=== PATIENT | male | born 1940 | race Caucasian/White ===

== ENCOUNTER → 2016-04-18 | Outpatient (CLI) | payer OTHER ==
[~2016-04-18] MED LIST: GADOBUTROL 10 ML VIAL IVP ONE
[2016-04-18 20:19] LABS: CREATININE 1.1 mg/dL (0.7-1.3); GLOMERULAR FILTRATION RATE > 60
--- NOTE | 2016-04-19 14:40 | MR ---
MRI of the Right Shoulder , without and with contrast. History: Shoulder pain. History of malignant melanoma. Technique: Axial proton density, oblique coronal, and sagittal T1 and T2 images were acquired. After intravenous administration of 7.5 mL Gadavist, postcontrast enhanced imaging of the right shoulder is obtained in 3 planes. Comparison Study: February 13, 2016. Findings: Supraspinatus tendon is intact, with mild bursal surface tendinosis. Infraspinatus is also intact with mild undersurface fraying at the greater tuberosity. Subscapularis and teres minor appear intact. There is mild edema diffusely throughout the teres minor muscle, which may be secondary to t rauma or denervation injury. This can be a manifestation of quadrilateral space syndrome. Long head biceps tendon is normally positioned and intact, with mild interstitial tendinosis through the intra-articular aspect. Fluid-filled distention of the subacromial bursa is compatible with bursitis. The patient has a moder ate-sized os acromiale, measuring 2.5 cm in size, with moderate fluid in the synostosis. Glenohumeral evaluation demonstrates deformity of the inferior aspect of the glenoid, suggesting prio r trauma or degenerative etiology. There is an associated degenerative nondisplaced tear of the poste roinferior labrum extending from the 6 o'clock position through the 9 o'clock position, with macerati on and fraying. The remainder of the glenoid labrum and articular cartilage appears intact. Again demonstrated is altered marrow signal intensity within the proximal right humeral diaphysis, wh ich appears identical in features to the prior examination. No extraosseous soft tissue mass identifi ed. Postcontrast enhanced images also demonstrate diffuse enhancement of the right shoulder joint capsule compatible with diffuse synovitis. There is enhancement of the rotator interval which may also repre sent a manifestation of adhesive capsulitis. Impression: 1. Subacromial bursitis. Os acromiale. 2. Diffuse edema throughout the muscle of the teres minor, potential focal trauma or quadrilateral sp andreas denervation injury. 3. Intact rotator cuff. Mild undersurface distal infraspinatus fraying and bursal surface supraspinat us tendinosis. 4. Mild long head biceps tendinosis, intraarticular aspect. 5. Deformity of the inferior glenoid associated with degenerative tear of the posteroinferior glenoid labrum. This may be secondary to prior trauma or degenerative etiology. 6. Stable altered marrow signal intensity within the proximal right humeral diaphysis, without eviden ce of extraosseous soft tissue mass. This may represent red marrow conversion. Continued follow-up durham ggested. 7. Diffuse enhancement of the right shoulder joint capsule suggestive of diffuse synovitis, possible adhesive capsulitis.
== END ==
LOC: FIMAGING 19:24
DX: C30.0 Malignant neoplasm of nasal cavity (principal); M75.51 Bursitis of right shoulder; M75.21 Bicipital tendinitis, right shoulder
CPT/HCPCS: 73223; A9585

== ENCOUNTER → 2016-05-26 | Outpatient (CLI) | payer OTHER ==
[~2016-05-26] MED LIST changes: -GADOBUTROL 10 ML VIAL IVP ONE; +IOPAMIDOL (ISOVUE-300) 100 ML BTL IV ONE
== END ==
LOC: CIMAGING 10:09
DX: C30.0 Malignant neoplasm of nasal cavity (principal); I65.23 Occlusion and stenosis of bilateral carotid arteries; J38.2 Nodules of vocal cords; I73.9 Peripheral vascular disease, unspecified; M50.31 Other cervical disc degeneration, high cervical region; M51.37 Other intervertebral disc degeneration, lumbosacral region; M16.0 Bilateral primary osteoarthritis of hip; N28.1 Cyst of kidney, acquired; Z85.038 Personal history of other malignant neoplasm of large intestine; Z85.51 Personal history of malignant neoplasm of bladder
CPT/HCPCS: 70491; 71260; 74177; Q9967

== ENCOUNTER → 2016-08-22 | Outpatient (CLI) | payer OTHER ==
[~2016-08-22] MED LIST changes: -IOPAMIDOL (ISOVUE-300) 100 ML BTL IV ONE; +IOPAMIDOL (ISOVUE-300) 100 ML BTL ONE
[2016-08-22 11:01] LABS: CREATININE 0.9 mg/dL (0.7-1.3); GLOMERULAR FILTRATION RATE > 60
== END ==
LOC: FIMAGING 09:50
DX: C30.0 Malignant neoplasm of nasal cavity (principal)
CPT/HCPCS: 70491; 71260; 74177; Q9967

== ENCOUNTER 2016-11-30 07:16 | Emergency (ER) | payer OTHER ==
[2016-11-30 07:21] VITALS: O2SAT 97
--- NOTE | 2016-11-30 07:50 | EDPHY ---
H & P Time Seen by Provider: 11/30/16 07:29 HPI/ROS: CHIEF COMPLAINT: Nausea, headache, sore throat HISTORY OF PRESENT ILLNESS: The patient is a 76 y/o male with an extensive cancer history who complains of nausea for the past several days. The nausea was initially waxing and waning, but it has recently become more constant. His states he has not been eating or drinking due to the nausea. He also complains of shortness of breath while laying down. The SOB is hard for him to explain, and seems related to nasal congestion. No cough, exertional SOB or cp. He also has a slight headache, and insomnia due to his general malaise. He also developed a sore throat, which his oncologist believes is due to his recent oral surgery (6wks ago). Laryngoscopy revealed swelling of the glottis. During the post-op visit with his oncologist, 8 days ago, he had a CT study performed that revealed post- op swelling; he denies change in neck sx since he had the CT. Recent brain MRI unremarkable. Denies fever, chest pain, weakness, urinary complaints, diarrhea , constipation or other pertinent symptoms. REVIEW OF SYSTEMS Aside from elements discussed in the HPI, a comprehensive 10-point review of systems was reviewed and is negative. Past Medical/Surgical History: PMH: Malignant melanoma of nasal passage, bladder and colon cancer, squamous cell cancer of vocal cords PSH: Femoral stent bypass Social History: at bedside, lives in [place], retired. Smoking Status: Former smoker Physical Exam: General Appearance: Alert, no distress, voice is hoarse Eyes: Pupils equal and round, no conjunctival pallor or injection ENT, Mouth: Mucous membranes moist, unable to open mouth fully, no gum swelling or tenderness Neck: right sided surgical scar and skin-flap,diffuse firmness of anterior neck (c/w XRT changes), no erythema, warmth or fluctance Respiratory: Lungs are clear to auscultation Cardiovascular: Regular rate and rhythm Gastrointestinal: Abdomen is soft and non- tender. Abdominal ostomy in place. Neurological: A&O, nonfocal, normal gait Skin: Warm and dry, no rash Extremities: Nontender, no pedal edema Psychiatric: Mood and affect normal Constitutional: Initial Vital Signs Temperature (C) 36.2 C 11/30/16 07:19 Heart Rate 96 11/30/16 07:19 Respiratory Rate 18 11/30/16 07:19 Blood Pressure 156/102 H 11/30/16 07:19 O2 Sat (%) 97 11/30/16 07:19 O2 Delivery Mode Room Air Allergies/Adverse Reactions: No Known Allergies Allergy (Verified 11/30/16 07:22) Home Medications: Medication Instructions Recorded Aspirin [Aspirin 81mg (*)] 81 mg PO DAILY 01/11/15 Lipitor 11/30/16 Ondansetron Odt [Zofran Odt 4 mg 4 mg PO Q4 PRN #10 tab 11/30/16 (*)] Medical Decision Making ED Course/Re-evaluation: The patient is a 76 y/o male who presents with nausea for the past several days. Physical exam is unremarkable and there are no localizing signs or symptoms to explain his nausea. Old medical records reviewed; recent CT neck/ chest/abd/pelvis revealed cervical lymphadenopathy, likely metastatic disease, otherwise fairly unremarkable. 0932: Reassessed patient; he is feeling better after 1L IV NS and 4mg IV Zofran. Plan on an additional 1L IV NS. 0948: Reassessed patient. He continues to feel much better and the nausea has resolved. Discussed outpatient followup with his primary care provider. Return precautions provided; patient is comfortable with this plan. Differential Diagnosis: includes though not limited to medication effect, brain tumor, intraabd infection, electrolyte abnormality. - Data Points Laboratory Results: Laboratory Results 11/30/16 08:58 11/30/16 08:58 11/30/16 11/30/16 08:58 08:58 WBC 5.47 10^3/uL 10^3/uL (3.80-9.50) RBC 3.98 10^6/uL L 10^6/uL (4.40-6.38) Hgb 14.0 g/dL g/dL (13.7-17.5) Hct 39.7 % L % (40.0-51.0) MCV 99.7 fL fL (81.5-99.8) MCH 35.2 pg H pg (27.9-34.1) MCHC 35.3 g/dL g/dL (32.4-36.7) RDW 13.2 % % (11.5-15.2) Plt Count 197 10^3/uL 10^3/uL (150-400) MPV 11.2 fL fL (8.7-11.7) Neut % (Auto) 80.5 % H % (39.3-74.2) Lymph % (Auto) 7.9 % L % (15.0-45.0) [place] % (Auto) 8.0 % % (4.5-13.0) Eos % (Auto) 2.4 % % (0.6-7.6) Baso % (Auto) 0.7 % % (0.3-1.7) Nucleat RBC Rel Count 0.0 % % (0.0-0.2) Absolute Neuts (auto) 4.40 10^3/uL 10^3/uL (1.70-6.50) Absolute Lymphs (auto) 0.43 10^3/uL L 10^3/uL (1.00-3.00) Absolute Monos (auto) 0.44 10^3/uL 10^3/uL (0.30-0.80) Absolute Eos (auto) 0.13 10^3/uL 10^3/uL (0.03-0.40) Absolute Basos (auto) 0.04 10^3/uL 10^3/uL (0.02-0.10) Absolute Nucleated RBC 0.00 10^3/uL 10^3/uL (0-0.01) Immature Gran % 0.5 % % (0.0-1.1) Immature Gran # 0.03 10^3/uL 10^3/uL (0.00-0.10) Sodium 132 mEq/L L mEq/L (134-144) Potassium 4.2 mEq/L mEq/L (3.5-5.2) Chloride 97 mEq/L mEq/L (97-110) Carbon Dioxide 23 mEq/l mEq/l (22-31) Anion Gap 12 mEq/L mEq/L (8-16) BUN 13 mg/dL mg/dL (7-23) Creatinine 0.8 mg/dL mg/dL (0.7-1.3) Estimated GFR > 60 Glucose 86 mg/dL mg/dL (70-100) Calcium 8.8 mg/dL mg/dL (8.5-10.4) Total Bilirubin 0.7 mg/dL mg/dL (0.1-1.4) Conjugated Bilirubin 0.4 mg/dL mg/dL (0.0-0.5) Unconjugated Bilirubin 0.3 mg/dL mg/dL (0.0-1.1) AST 21 IU/L IU/L (17-59) ALT 36 IU/L IU/L (21-72) Alkaline Phosphatase 100 IU/L IU/L (38-126) Total Protein 6.0 g/dL L g/dL (6.3-8.2) Albumin 3.8 g/dL g/dL (3.5-5.0) Lipase 39 IU/L IU/L (23-300) Medications Given: Discontinued Medications Sodium Chloride (Ns) 1,000 mls @ 0 mls/hr IV EDNOW ONE; Wide Open PRN Reason: Protocol Stop: 11/30/16 07:52 Last Admin: 11/30/16 07:58 Dose: 1,000 mls Sodium Chloride (Ns) 1,000 mls @ 0 mls/hr IV ONCE ONE; Wide Open PRN Reason: Protocol Stop: 11/30/16 09:33 Last Admin: 11/30/16 09:39 Dose: 1,000 mls Ondansetron HCl (Zofran) 4 mg IVP EDNOW ONE Stop: 11/30/16 07:52 Last Admin: 11/30/16 07:57 Dose: 4 mg Departure - Departure Disposition: Home, Routine, Self-Care Clinical Impression: Nausea Condition: Good Instructions: Acute Nausea and Vomiting (ED) Additional Instructions: 1. Take Zofran as prescribed for your nausea. 2. Followup with your primary care provider in 1-2 days without fail. 3. Return to the emergency department if you experience intractable vomiting, fever, difficulty breathing or other worsening of your symptoms. Referrals: Azam Echevarria MD [Primary Care Provider] - As per Instructions Prescriptions: Ondansetron Odt [Zofran Odt 4 mg (*)] 4 mg PO Q4 PRN #10 tab PRN Reason: Nausea Report Scribed for: Glenis Alexandre Report Scribed by: Genia Morales Date of Report: 11/30/16 Time of Report: 07:31 Physician Review and Approval Statement: 11/30/16 07:31 Portions of this note were transcribed by a medical care evaluation specialist. I personally performed a history, physical exam, medical decision making, and confirmed accuracy of information the transcribed note.
[2016-11-30] MEDS ORDERED: ONDANSETRON 4 MG/2 ML VIAL IVP ONE (07:51)
[2016-11-30] MEDS ORDERED: NS 1,000 ML IV ONE ×2 (07:51→09:32)
[2016-11-30 09:05] LABS: % IMMATURE GRANULYOCYTES 0.5 % (0.0-1.1); ABSOLUTE IMMATURE GRANULOCYTES 0.03 10^3/uL (0.00-0.10); ADD DIFF? NO; ADD MORPH? NO; ADD SCAN? NO; ATYPICAL LYMPHOCYTE FLAG 10 (0-99); FRAGMENT RBC FLAG 0 (0-99); HEMATOCRIT 39.7 % (40.0-51.0); LEFT SHIFT FLG 0 (0-99); LIPEMIA HEMOLYSIS FLAG 90 (0-99); MEAN CELL HEMOGLOBIN 35.2 pg (27.9-34.1); MEAN CELL HEMOGLOBIN CONCENTR. 35.3 g/dL (32.4-36.7); MEAN CELL VOLUME 99.7 fL (81.5-99.8); MEAN PLATELET VOLUME 11.2 fL (8.7-11.7); PLATELET CLUMPS FLAG 0 (0-99); PLATELET COUNT 197 10^3/uL (150-400); RED BLOOD CELL COUNT 3.98 10^6/uL (4.40-6.38); RED CELL DISTRIBUTION WIDTH 13.2 % (11.5-15.2)
[2016-11-30 09:31] LABS: ALANINE AMINOTRANSFERASE 36 IU/L (21-72); ALBUMIN 3.8 g/dL (3.5-5.0); ALKALINE PHOSPHATASE 100 IU/L (38-126); ANION GAP 12 mEq/L (8-16); ASPARTATE AMINOTRANSFERASE 21 IU/L (17-59); BILIRUBIN,TOTAL 0.7 mg/dL (0.1-1.4); BILIRUBIN-CONJUGATED 0.4 mg/dL (0.0-0.5); BILIRUBIN-UNCONJUGATED 0.3 mg/dL (0.0-1.1); CALCIUM 8.8 mg/dL (8.5-10.4); CARBON DIOXIDE 23 mEq/l (22-31); CHLORIDE 97 mEq/L (97-110); CREATININE 0.8 mg/dL (0.7-1.3); GLOMERULAR FILTRATION RATE > 60; GLUCOSE 86 mg/dL (70-100); POTASSIUM 4.2 mEq/L (3.5-5.2); SODIUM 132 mEq/L (134-144)
[2016-11-30 10:04] VITALS: BP 150/81; PULSE 84; RESP 16; TEMP 97.3
== END 2016-11-30 10:33 | disposition home or self-care (01) ==
DX: R11.0 Nausea (principal); E86.9 Volume depletion, unspecified; Z79.82 Long term (current) use of aspirin; Z85.038 Personal history of other malignant neoplasm of large intestine; Z85.51 Personal history of malignant neoplasm of bladder; Z85.820 Personal history of malignant melanoma of skin; Z85.828 Personal history of other malignant neoplasm of skin; Z87.891 Personal history of nicotine dependence
CPT/HCPCS: 96361; 96374; 99284; J2405

== ENCOUNTER 2017-02-04 10:51 | Inpatient (IN) | payer OTHER ==
[2017-02-04] MEDS ORDERED: NS 1,000 ML IV ONE (11:01)
--- NOTE | 2017-02-04 11:10 | EDPHY ---
HPI/HX/ROS/PE/MDM Narrative: CHIEF COMPLAINT: Dehydration, decreasing appetite HPI: The patient is a 76 y/o male arriving with his family with dehydration and decreasing appetite over the last 3 days. 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 Since his most recent trial, they saw an increase in the size of melanoma metastases in his liver and lungs. He saw his oncologist this past week and they have opted to set him up with palliative care. They have not yet been contacted by a palliative care nurse due to the holiday and family is concerned about keeping him comfortable until that is set up. His family says he has eaten very little since Monday, though he has been able to take his medications. He has appeared very restless and uncomfortable during this time and family is concerned he is now dehydrated. REVIEW OF SYSTEMS: Aside from elements discussed in the HPI, a comprehensive 10-point review of systems was reviewed and is negative. PMH: Malignant melanoma of nasal passage, bladder, and colon; squamous cell carcinoma of vocal cords, currently on immunotherapy trials at [facility]. 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 Prior medical records reviewed including ED visit 11/30/16 for nausea. SOCIAL HISTORY: and daughters at bedside. Oncologist is Dr. Evans at [facility]. PHYSICAL EXAM: General:Patient is alert, in no acute distress. ENT:Eyes are normal to inspection. Limited intraoral inspection due to mass. Neck: Large swelling and deformity to right clavicular area and right lateral throat. Respiratory:No respiratory distress. Breath sounds normal bilaterally. Cardiovascular: Regular rate and rhythm. Strong peripheral pulses. Normal cap refill. Abdomen:The abdomen is nontender to palpation. There are no peritoneal signs. Back: Normal to inspection. No tenderness to palpation. Skin: Normal color. No rash. Warm and dry. Extremities: Normal appearance. Full range of motion. Neuro: Oriented x3. Normal motor function. Normal sensory function. ED Course: This is a 76 y/o male with metastatic mucosal melanoma who presents with a 3- day history of decreasing appetite, dehydration, and worsening restlessness. He has large area of swelling and deformity to his right clavicular area and right throat. They are planning to set up palliative care but have been unable to do so over the holiday. Family is requesting hydration and possible admission to keep patient comfortable, hydrated, and fed until home care is arranged. Plan for IV, labs, and IV fluids. Patient declines pain medication at this time. Dr. Salvador accepts admission. General Initial Vital Signs: Initial Vital Signs Temperature (C) 37 C 02/04/17 10:55 Heart Rate 104 H 02/04/17 10:55 Respiratory Rate 20 02/04/17 10:55 Blood Pressure 82/53 L 02/04/17 10:55 O2 Sat (%) 95 02/04/17 10:55 O2 Delivery Mode Room Air Allergies/Adverse Reactions: No Known Allergies Allergy (Verified 02/04/17 10:54) Home Medications: Medication Instructions Recorded ASPIRIN 02/04/17 DEXAMETHASONE 02/04/17 MIRTAZAPINE 02/04/17 Zofran 02/04/17 morphINE 02/04/17 Departure - Departure Disposition: [facility] Inpatient Acute Clinical Impression: Dehydration, Loss of appetite, Metastatic melanoma Condition: Fair Referrals: Azam Echevarria MD [Primary Care Provider] - As per Instructions Report Scribed for: Arnoldo Castellanos Report Scribed by: Janeth Ramos Date of Report: 02/04/17 Time of Report: 11:03 Physician Review and Approval Statement: Portions of this note were transcribed by an ED scribe. I personally performed the history, physical exam, and medical decision making; and confirm the accuracy of the information in the transcribed note.
[2017-02-04 11:54] LABS: % IMMATURE GRANULYOCYTES 0.7 % (0.0-1.1); ABSOLUTE IMMATURE GRANULOCYTES 0.08 10^3/uL (0.00-0.10); ADD DIFF? NO; ADD MORPH? NO; ADD SCAN? NO; ATYPICAL LYMPHOCYTE FLAG 0 (0-99); FRAGMENT RBC FLAG 20 (0-99); HEMATOCRIT 39.9 % (40.0-51.0); HEMOGLOBIN 13.5 g/dL (13.7-17.5); LEFT SHIFT FLG 0 (0-99); LIPEMIA HEMOLYSIS FLAG 90 (0-99); MEAN CELL HEMOGLOBIN 34.7 pg (27.9-34.1); MEAN CELL HEMOGLOBIN CONCENTR. 33.8 g/dL (32.4-36.7); MEAN CELL VOLUME 102.6 fL (81.5-99.8); MEAN PLATELET VOLUME 11.8 fL (8.7-11.7); PLATELET CLUMPS FLAG 0 (0-99); PLATELET COUNT 259 10^3/uL (150-400); RED BLOOD CELL COUNT 3.89 10^6/uL (4.40-6.38); RED CELL DISTRIBUTION WIDTH 14.7 % (11.5-15.2)
[2017-02-04 12:06] LABS: ANION GAP 10 mEq/L (8-16); CALCIUM 9.2 mg/dL (8.5-10.4); CARBON DIOXIDE 30 mEq/l (22-31); CHLORIDE 96 mEq/L (97-110); CREATININE 0.8 mg/dL (0.7-1.3); GLOMERULAR FILTRATION RATE > 60; GLUCOSE 104 mg/dL (70-100); SODIUM 136 mEq/L (134-144)
[2017-02-04] MEDS ORDERED: LORazepam 0.5 MG TAB PO PRN ×2 (13:24→13:50)
[2017-02-04] MEDS ORDERED: ALBUTEROL 3 ML DEYVIAL IH PRN (13:50)
[2017-02-04] MEDS ORDERED: ACETAMINOPHEN 325 MG TAB PO PRN (13:50)
[2017-02-04] MEDS ORDERED: ONDANSETRON 4 MG/2 ML VIAL IVP PRN (13:50)
--- NOTE | 2017-02-04 14:01 | PDGENHP ---
History and Physical - Chief Complaint dehydration - History of Present Illness This is a 76 y/o male with metastatic mucosal melanoma who presents with a 3- day history of decreasing appetite, dehydration, and worsening restlessness. He has large area of swelling and deformity to his right clavicular area and right throat. He met with his Oncologist at the [facility] and palliative care was attempted to be set up. Unfortunately due to the holidays this could not be done. In the E.D. he was found to have acute dehydration and started on IVF. He feels slightly better but still not well. He is very weak. He has has very limited oral intake over the last few days. He c/o of generalized pain and neck pain intermittently. He denies any N/V/D. Denies resp or urinary symptoms. Has been afebrile. No focal weakness PMH: Malignant melanoma of nasal passage, bladder, and colon; squamous cell carcinoma of vocal cords, currently on immunotherapy trials at [facility]. 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 Oncologist is Dr. Evans at [facility]. FMHX: NON CONTRIBUTABLE STUDIES: WBC: 11, otherwise labs unremarkable History Information - Allergies/Home Medication List Allergies/Adverse Reactions: No Known Allergies Allergy (Verified 02/04/17 10:54) Home Medications: Aspirin EC [Aspirin EC 81 mg (*)] 81 mg PO DAILY 02/04/17 [Last Taken 02/04/17] Atorvastatin Calcium [Lipitor 40 mg (*)] 40 mg PO DAILY 02/04/17 [Last Taken ] Dexamethasone [Decadron 2 MG (*)] 2 - 4 mg PO DAILY 02/04/17 [Last Taken ] LORazepam [Ativan (*)] 0.5 - 1 mg PO Q6H PRN 02/04/17 [Last Taken Unknown] Mirtazapine [Remeron] 15 mg PO HS 02/04/17 [Last Taken 02/03/17] Ondansetron Odt [Zofran Odt 4 mg (*)] 8 mg PO BID 02/04/17 [Last Taken 02/04/17] morphINE IR [morphINE IR 15 mg (*)] 15 mg PO Q4H PRN 02/04/17 [Last Taken ] morphINE SR [Ms Contin/Oramorph 15 mg (*)] 15 mg PO BID 02/04/17 [Last Taken ] I have personally reviewed and updated: medical history, social history - Social History Smoking Status: Former smoker Review of Systems Review of Systems: ROS: 10pt was reviewed & negative except for what was stated in HPI & below Physical Exam Physical Exam: Temp Pulse Resp BP Pulse Ox 36.9 C 86 16 151/73 H 98 02/04/17 12:51 02/04/17 12:51 02/04/17 12:51 02/04/17 12:51 02/04/17 12:51 O2 (L/minute) 2 Constitutional: chronically ill appearing Eyes: PERRL, EOMI Ears, Nose, Mouth, Throat: hearing normal, dry mucous membranes Cardiovascular: regular rate and rhythym, No JVD, No edema Respiratory: no respiratory distress, no rales or rhonchi, clear to auscultation Gastrointestinal: normoactive bowel sounds, soft, non-tender abdomen, no palpable masses, other (ostomy bag) Genitourinary: no bladder fullness Skin: warm Musculoskeletal: generalized weakness Neurologic: AAOx3 Psychiatric: interacting appropriately, not anxious, encephalopathic (slightly confused) Lab Data & Imaging Review 02/04/17 11:42 02/04/17 11:42 WBC 11.05 10^3/uL (3.80-9.50) H 02/04/17 11:42 RBC 3.89 10^6/uL (4.40-6.38) L 02/04/17 11:42 Hgb 13.5 g/dL (13.7-17.5) L 02/04/17 11:42 Hct 39.9 % (40.0-51.0) L 02/04/17 11:42 MCV 102.6 fL (81.5-99.8) H 02/04/17 11:42 MCH 34.7 pg (27.9-34.1) H 02/04/17 11:42 MCHC 33.8 g/dL (32.4-36.7) 02/04/17 11:42 RDW 14.7 % (11.5-15.2) 02/04/17 11:42 Plt Count 259 10^3/uL (150-400) 02/04/17 11:42 MPV 11.8 fL (8.7-11.7) H 02/04/17 11:42 Neut % (Auto) 84.0 % (39.3-74.2) H 02/04/17 11:42 Lymph % (Auto) 6.6 % (15.0-45.0) L 02/04/17 11:42 [place] % (Auto) 7.4 % (4.5-13.0) 02/04/17 11:42 Eos % (Auto) 0.8 % (0.6-7.6) 02/04/17 11:42 Baso % (Auto) 0.5 % (0.3-1.7) 02/04/17 11:42 Nucleat RBC Rel Count 0.0 % (0.0-0.2) 02/04/17 11:42 Absolute Neuts (auto) 9.28 10^3/uL (1.70-6.50) H 02/04/17 11:42 Absolute Lymphs (auto) 0.73 10^3/uL (1.00-3.00) L 02/04/17 11:42 Absolute Monos (auto) 0.82 10^3/uL (0.30-0.80) H 02/04/17 11:42 Absolute Eos (auto) 0.09 10^3/uL (0.03-0.40) 02/04/17 11:42 Absolute Basos (auto) 0.05 10^3/uL (0.02-0.10) 02/04/17 11:42 Absolute Nucleated RBC 0.00 10^3/uL (0-0.01) 02/04/17 11:42 Immature Gran % 0.7 % (0.0-1.1) 02/04/17 11:42 Immature Gran # 0.08 10^3/uL (0.00-0.10) 02/04/17 11:42 Sodium 136 mEq/L (134-144) 02/04/17 11:42 Potassium 4.0 mEq/L (3.5-5.2) 02/04/17 11:42 Chloride 96 mEq/L (97-110) L 02/04/17 11:42 Carbon Dioxide 30 mEq/l (22-31) 02/04/17 11:42 Anion Gap 10 mEq/L (8-16) 02/04/17 11:42 BUN 26 mg/dL (7-23) H 02/04/17 11:42 Creatinine 0.8 mg/dL (0.7-1.3) 02/04/17 11:42 Estimated GFR > 60 02/04/17 11:42 Glucose 104 mg/dL (70-100) H 02/04/17 11:42 Calcium 9.2 mg/dL (8.5-10.4) 02/04/17 11:42 Assessment & Plan Assessment: #Acute Dehydration #Metastatic Mucosal Melanoma with mets to liver and lung #FTT #Weakness and Deconditioning. Etiology is likely multifactorial. I do not see an infectious reason for this Plan: -Admit -More IVF -Nutrition consult -Palliative care consult -Pain meds -Supportive care -Hold off on Onc consult for now -check labs, TSH -DNR, confirmed today -Lovenox for DVT proph
--- NOTE | 2017-02-04 14:38 | PDMN ---
Medical Necessity Medical necessity: C/M review: est. > 2 MN LOS for eval and TX of acute dehydration, failure to thrive, generalized weakness and deconditioning, decreasing appetite, requiring planned Palliative Care consult, Dietary consult , ongoing IV fluids, acute inpt PT, pain management, comorbid metastatic mucosal melanoma with metastasis to liver and lung, hx hyperlipidemia, chronic pain syndrome, colostomy per H/P.
[2017-02-04] MEDS: NS 1,000 ML IV SCH (14:44)
[2017-02-04] MEDS: DEXAMETHASONE 2 MG TAB PO SCH (14:44)
[2017-02-04] MEDS ORDERED: NON-FORMULARY NEW DRUG (Mirtazapine [Remeron] 15 MG) PO SCH (21:00)
[2017-02-04] MEDS: ONDANSETRON DISINTEGRATING 4 MG TAB PO SCH (21:42)
[2017-02-04] MEDS: MIRTAZAPINE 15 MG TAB PO SCH (21:42)
[2017-02-04] MEDS: morphINE SR 15 MG TAB PO SCH (21:42)
[2017-02-05] MEDS: NS 1,000 ML IV SCH ×2 (04:10→16:45)
[2017-02-05 06:09] LABS: ALANINE AMINOTRANSFERASE 33 IU/L (21-72); ALBUMIN 3.3 g/dL (3.5-5.0); ALKALINE PHOSPHATASE 85 IU/L (38-126); ANION GAP 11 mEq/L (8-16); ASPARTATE AMINOTRANSFERASE 25 IU/L (17-59); CALCIUM 8.8 mg/dL (8.5-10.4); CARBON DIOXIDE 29 mEq/l (22-31); CHLORIDE 100 mEq/L (97-110); CREATININE 0.7 mg/dL (0.7-1.3); GLOMERULAR FILTRATION RATE > 60; GLUCOSE 92 mg/dL (70-100); MAGNESIUM 1.7 mg/dL (1.6-2.3); POTASSIUM 4.4 mEq/L (3.5-5.2); SODIUM 140 mEq/L (134-144); TOTAL PROTEIN 5.6 g/dL (6.3-8.2)
[2017-02-05] MEDS: morphINE SR 15 MG TAB PO SCH ×2 (08:43→20:05)
[2017-02-05] MEDS: ENOXAPARIN 40 MG/0.4 ML SYR SC SCH (08:43)
[2017-02-05] MEDS: ATORVASTATIN CALCIUM 40 MG TAB PO SCH (08:43)
[2017-02-05] MEDS: ONDANSETRON DISINTEGRATING 4 MG TAB PO SCH ×2 (08:44→20:06)
[2017-02-05] MEDS: ASPIRIN EC 81 MG TAB PO SCH (08:44)
[2017-02-05] MEDS: DEXAMETHASONE 2 MG TAB PO SCH (08:44)
[2017-02-05] MEDS ORDERED: DEXAMETHASONE 2 MG TAB PO SCH (09:00)
--- NOTE | 2017-02-05 12:08 | HOSPPROG ---
Hospitalist Progress Note Assessment/Plan: #Acute Dehydration, improving #Metastatic Mucosal Melanoma with mets to liver and lung #FTT #Weakness and Deconditioning. Etiology is likely multifactorial Plan: -Inpt -cont with IVF -Nutrition consult pending -Palliative care consult pending -Pain meds -Supportive care -Hold off on Onc consult for now -PT -DNR -Lovenox for DVT proph Subjective: Feeling better, still with low oral intake. No CP or SOB Objective: Vital Signs Temp Pulse Resp BP Pulse Ox 36.6 C 90 18 150/79 H 95 02/05/17 07:29 02/05/17 07:29 02/05/17 07:29 02/05/17 07:29 02/05/17 07:29 Laboratory Results 02/05/17 05:35 02/04/17 02/05/17 02/06/17 05:59 05:59 05:59 Intake Total 1180 Balance 1180 - Physical Exam Constitutional: chronically ill appearing Eyes: PERRL, EOMI Ears, Nose, Mouth, Throat: dry mucous membranes Cardiovascular: regular rate and rhythym, No edema Respiratory: no respiratory distress Gastrointestinal: soft, non-tender abdomen Skin: warm Musculoskeletal: generalized weakness Neurologic: AAOx3 Psychiatric: interacting appropriately, not anxious, not encephalopathic ICD10 Worksheet Patient Problems: Problems Problem Status Onset Dehydration Acute Loss of appetite Acute Metastatic melanoma Acute Small bowel obstruction Acute
[2017-02-05] MEDS: MIRTAZAPINE 15 MG TAB PO SCH (20:06)
[2017-02-06] MEDS: NS 1,000 ML IV SCH ×2 (05:44→18:54)
--- NOTE | 2017-02-06 10:23 | HOSPPROG ---
Hospitalist Progress Note Assessment/Plan: #Acute Dehydration, improving #Metastatic Mucosal Melanoma with mets to liver and lung #FTT #Weakness and Deconditioning. Etiology is likely multifactorial Plan: -Inpt -cont with IVF -Nutrition consult pending -Palliative care consult pending -Pain meds -Supportive care -Hold off on Onc consult for now -PT -DNR -Lovenox for DVT proph Subjective: improved pain with mscontin. not sleeping well. awaits paliative care eval today Objective: Vital Signs Temp Pulse Resp BP Pulse Ox 36.6 C 90 20 134/70 H 96 02/06/17 09:03 02/06/17 09:03 02/06/17 09:03 02/06/17 09:03 02/06/17 09:03 Laboratory Results 02/05/17 05:35 02/05/17 02/06/17 02/07/17 05:59 05:59 05:59 Intake Total 1180 2578 Balance 1180 2578 - Physical Exam Constitutional: no apparent distress, uncomfortable Ears, Nose, Mouth, Throat: other (large right sided neck mass) Cardiovascular: regular rate and rhythym, no murmur, rub, or gallop Respiratory: no respiratory distress, no rales or rhonchi, clear to auscultation Gastrointestinal: normoactive bowel sounds, soft, non-tender abdomen, no palpable masses, No guarding, No rebound ICD10 Worksheet Patient Problems: Problems Problem Status Onset Small bowel obstruction Acute Dehydration Acute Loss of appetite Acute Metastatic melanoma Acute
--- NOTE | 2017-02-06 11:04 | PDPCPN ---
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 Iv fluids given and improvement in symptoms. Follows with Dr [facility] and currently undergoing clinical trial with immunotherapy. Oncologist had recommended palliative care at the last appointment but was admitted to the hospital before this was accomplished. Palliative care consulted per family request. Met with Ryan, his Goldie, daughter Mitesh Munson, and Myrna at the bedside this morning. Goldie and Ryan shared their long history of cancer but always beating it. Just a couple of weeks ago Ryan learned that he had metastatic cancer as the latest CT showed progression into his lungs and liver. He had been on a clinical trial in hopes of this working. Per Ryan his oncologist is looking into another clinical trial and he was supposed to start 5 days of an oral chemo to see if this would help shrink the tumors. He has been having decreased appetite with dehydration over the past 3 weeks. He did not eat or drink anything for almost 3 days before this hospitalization. He has been having no taste and therefore does not want to eat much. Also suffers from constant nausea which is somewhat relieved with zofran. His pain has much improved with the MScontin and states none at the moment. At times he is sleeping a lot but this past week he has not been able to sleep at all. He is used to being a very active person who is independent. He is hoping he can have some stabilization of his symptoms so he can have a good quality of life again. We spoke about if he does not improve then he stated "that would be the end". While he hopes to be able to do a clinical trial again, he also realizes he is not a candidate for chemo at this time. Assessment: Physical: - Pain: chronic pain from cancer -on scheduled MScontin 15 mg BID - morphine IR PRN - on dex which will help with any inflammatory pain - Poor appetite: - on remeron 15 mg QHS- just recently started - dex as above - has tried various appetite stimulants in the past with limited success - general diet as tolerated - pain control as above - constipation- has ostomy with good output - at risk on opiates - senna has worked well in the past and would use PRN while on opiates Emotional/psychological: Doing ok, has a lot of support from family Advanced Care Planning: Is patient decisional?: Yes Code Status: DNR POMamie: Goldie is MDPOA. Plan: Home once medically stable. Setting up for home IV hydration, C RN, and home based palliative care to continue working on symptoms and goals of care. Ryan is hoping he can stabilize his symptoms so he can continue a clinical trial but if he does not improve then he would want to focus on comfort care only. Subjective: I'm ok Objective: Social History: to Goldie. 2 daughters involved and local. Son lives in [facility]. Retired genetic engineer. Enjoys playing golf. Medication list reviewed ROS: General: fatigue, weakness ENT: negative Resp: negative GI: poor appetite : negative MS: ca related pain Skin: negative Neuro: negative Psych: negative Functional assessment: PPS: 50% Functional status: needs assistance with ADLs Vital Signs Temp Pulse Resp BP Pulse Ox 36.6 C 90 20 134/70 H 96 02/06/17 09:03 02/06/17 09:03 02/06/17 09:03 02/06/17 09:03 02/06/17 09:03 Laboratory Results 02/05/17 05:35 02/05/17 02/06/17 02/07/17 05:59 05:59 05:59 Intake Total 1180 2578 Balance 1180 2578 Physical Exam - Physical Exam General Appearance: alert, no apparent distress EENT: other (large mass on right neck) Respiratory: No respiratory distress, No accessory muscle use Skin: normal color, warm/dry Extremities: No pedal edema Neuro/Psych: alert, oriented x 3 ICD10 Worksheet Patient Problems: Problems Problem Status Onset Dehydration Acute Loss of appetite Acute Metastatic melanoma Acute Palliative care encounter Acute Small bowel obstruction Acute - ICD10 Problem Qualifiers (1) Palliative care encounter
[2017-02-06] MEDS: morphINE SR 15 MG TAB PO SCH ×2 (11:05→21:26)
[2017-02-06] MEDS: ASPIRIN EC 81 MG TAB PO SCH (11:05)
[2017-02-06] MEDS: ATORVASTATIN CALCIUM 40 MG TAB PO SCH (11:06)
[2017-02-06] MEDS: DEXAMETHASONE 2 MG TAB PO SCH (11:06)
[2017-02-06] MEDS: ONDANSETRON DISINTEGRATING 4 MG TAB PO SCH ×2 (11:06→21:26)
[2017-02-06] MEDS: ENOXAPARIN 40 MG/0.4 ML SYR SC SCH (11:06)
--- NOTE | 2017-02-06 13:18 | PDIAF ---
- Diagnosis Diagnosis: Malignant Melanoma Code Status: Do Not Resuscitate - Medication Management Discharge Medications: Medications to Continue on Transfer Aspirin EC [Aspirin EC 81 mg (*)] 81 mg PO DAILY 02/04/17 [Last Taken 02/04/17] Atorvastatin Calcium [Lipitor 40 mg (*)] 40 mg PO DAILY 02/04/17 [Last Taken ] Dexamethasone [Decadron 2 MG (*)] 2 - 4 mg PO DAILY 02/04/17 [Last Taken ] LORazepam [Ativan (*)] 0.5 - 1 mg PO Q6H PRN 02/04/17 [Last Taken Unknown] Mirtazapine [Remeron] 15 mg PO HS 02/04/17 [Last Taken 02/03/17] Ondansetron Odt [Zofran Odt 4 mg (*)] 8 mg PO BID 02/04/17 [Last Taken 02/04/17] morphINE IR [morphINE IR 15 mg (*)] 15 mg PO Q4H PRN 02/04/17 [Last Taken ] morphINE SR [Ms Contin/Oramorph 15 mg (*)] 15 mg PO BID 02/04/17 [Last Taken ] Discharge Medications: Refer to the Discharge Home Medication list for PRN reason. - Orders Services needed: Home Care, Registered Nurse (IV hydration at home), Physical Therapy Home Care Face to Face: I certify that this patient was under my care and that I had the required [id number] encounter meeting the encounter requirements on the discharge day. My findings support the fact that the patient is homebound as defined in Home Care Face to Face Continued: CMS Chapter 7 Medicare Benefits Manual 30.1.1 , The condition of the patient is such that there exists a normal inability to leave home and consequently, leaving home would require a considerable and taxing effort. Diet Recommendation: no restrictions on diet Additional: IV hydration - Follow Up Care Current Providers and Referrals: Azam Echevarria MD [Primary Care Provider] - As per Instructions
--- NOTE | 2017-02-06 15:34 | ASMTCMCOM ---
CM Note CM Note Notes: Met with patient today with spouse and daugter present. Patient and family decided that they would like to be able to go home but understand that they will need both Home care services with RN for help with infusion and with his ostomy. as will as PT and OT at home. Spoke with Itzel at [facility] who will get infusion supplies for hydration at home. Hanna Kwan to see patient and spouse on Monday, 02/07 between 9 and 10am. Patients spouse said she felt her would benefit in having some alone time talking with Palliative meteorology teacher Mitesh. Case management will follow. Date Signed: 02/06/2017 03:33 PM Electronically Signed By:DEMARCUS Larios
[2017-02-06] MEDS ORDERED: LOSARTAN POTASSIUM 50 MG TAB PO SCH (16:30)
--- NOTE | 2017-02-06 20:16 | GDS ---
[f rep st] DISCHARGE SUMMARY DISCHARGE DIAGNOSES: 1. Metastatic mucosal melanoma with metastasis to the liver and lung. 2. Failure to thrive due to above. 3. Acute dehydration. 4. Weakness and deconditioning. CONSULTANTS: Hospice and Palliative Care. HOSPITAL COURSE BY PROBLEM: Metastatic mucosal melanoma, presenting with dehydration, failure to thr ben with weakness and deconditioning: The patient was admitted to the hospital where he was continue d on his oral home pain medications that consisted of MS Contin. He was treated with IV fluids. On hospital day #2, he was seen by Palliative Care who have recommended that he be discharged home with home care, PT, and home hydration. [facility], but will likely proceed with hospice care. PHYSICAL EXAM ON DISCHARGE: Please refer to progress note in [facility]. DISCHARGE MEDICATIONS: Please refer to discharge medication reconciliation in [facility] for details. DISCHARGE INSTRUCTIONS: The patient will be discharged home, where he should follow up with his Onco logy team to further discuss treatment options and to consider hospice care. /[id number]/MODL
[2017-02-06] MEDS ORDERED: PANTOPRAZOLE SODIUM 40 MG TAB PO SCH (21:00)
[2017-02-06] MEDS: MIRTAZAPINE 15 MG TAB PO SCH (21:26)
[2017-02-07 03:13] VITALS: RESP 18
[2017-02-07] MEDS: NS 1,000 ML IV SCH (07:54)
[2017-02-07] MEDS: ENOXAPARIN 40 MG/0.4 ML SYR SC SCH (08:30)
[2017-02-07] MEDS: ASPIRIN EC 81 MG TAB PO SCH (08:30)
[2017-02-07] MEDS: ATORVASTATIN CALCIUM 40 MG TAB PO SCH (08:30)
[2017-02-07] MEDS: morphINE SR 15 MG TAB PO SCH (08:30)
[2017-02-07] MEDS: ONDANSETRON DISINTEGRATING 4 MG TAB PO SCH (08:31)
[2017-02-07] MEDS: DEXAMETHASONE 2 MG TAB PO SCH (08:31)
--- NOTE | 2017-02-07 13:26 | PDIAF ---
- Diagnosis Diagnosis: Malignant Melanoma Code Status: Do Not Resuscitate - Medication Management Discharge Medications: Medications to Continue on Transfer Aspirin EC [Aspirin EC 81 mg (*)] 81 mg PO DAILY 02/04/17 [Last Taken 02/04/17] Atorvastatin Calcium [Lipitor 40 mg (*)] 40 mg PO DAILY 02/04/17 [Last Taken ] Dexamethasone [Decadron 2 MG (*)] 2 - 4 mg PO DAILY 02/04/17 [Last Taken ] LORazepam [Ativan (*)] 0.5 - 1 mg PO Q6H PRN 02/04/17 [Last Taken Unknown] Mirtazapine [Remeron] 15 mg PO HS 02/04/17 [Last Taken 02/03/17] Ondansetron Odt [Zofran Odt 4 mg (*)] 8 mg PO BID 02/04/17 [Last Taken 02/04/17] morphINE IR [morphINE IR 15 mg (*)] 15 mg PO Q4H PRN 02/04/17 [Last Taken ] morphINE SR [Ms Contin/Oramorph 15 mg (*)] 15 mg PO BID 02/04/17 [Last Taken ] Discharge Medications: Refer to the Discharge Home Medication list for PRN reason. - Orders Services needed: Home Care, Registered Nurse, Physical Therapy, Occupational Therapy Home Care Face to Face: I certify that this patient was under my care and that I had the required [id number] encounter meeting the encounter requirements on the discharge day. My findings support the fact that the patient is homebound as defined in Home Care Face to Face Continued: CMS Chapter 7 Medicare Benefits Manual 30.1.1 , The condition of the patient is such that there exists a normal inability to leave home and consequently, leaving home would require a considerable and taxing effort. Diet Recommendation: no restrictions on diet Additional: IV Hydration - Follow Up Care Current Providers and Referrals: Azam Echevarria MD [Primary Care Provider] - As per Instructions
--- NOTE | 2017-02-07 13:28 | PDIAF ---
- Diagnosis Diagnosis: Malignant Melanoma Code Status: Do Not Resuscitate - Medication Management Discharge Medications: Medications to Continue on Transfer Aspirin EC [Aspirin EC 81 mg (*)] 81 mg PO DAILY 02/04/17 [Last Taken 02/04/17] Atorvastatin Calcium [Lipitor 40 mg (*)] 40 mg PO DAILY 02/04/17 [Last Taken ] Dexamethasone [Decadron 2 MG (*)] 2 - 4 mg PO DAILY 02/04/17 [Last Taken ] LORazepam [Ativan (*)] 0.5 - 1 mg PO Q6H PRN 02/04/17 [Last Taken Unknown] Mirtazapine [Remeron] 15 mg PO HS 02/04/17 [Last Taken 02/03/17] Ondansetron Odt [Zofran Odt 4 mg (*)] 8 mg PO BID 02/04/17 [Last Taken 02/04/17] morphINE IR [morphINE IR 15 mg (*)] 15 mg PO Q4H PRN 02/04/17 [Last Taken ] morphINE SR [Ms Contin/Oramorph 15 mg (*)] 15 mg PO BID 02/04/17 [Last Taken ] Ns [NS IV 1000ml (*)] 75 ml IV CONT #1 bag 02/07/17 [Last Taken Unknown] Discharge Medications: Refer to the Discharge Home Medication list for PRN reason. - Orders Services needed: Home Care, Registered Nurse, Physical Therapy, Occupational Therapy Home Care Face to Face: I certify that this patient was under my care and that I had the required [id number] encounter meeting the encounter requirements on the discharge day. My findings support the fact that the patient is homebound as defined in Home Care Face to Face Continued: CMS Chapter 7 Medicare Benefits Manual 30.1.1 , The condition of the patient is such that there exists a normal inability to leave home and consequently, leaving home would require a considerable and taxing effort. Diet Recommendation: no restrictions on diet Additional: IV Hydration NS 75 ml/hr - Follow Up Care Current Providers and Referrals: Azam Echevarria MD [Primary Care Provider] - As per Instructions
[2017-02-07 13:35] VITALS: BP 151/75; PULSE 83; TEMP 97.9; O2SAT 97
--- NOTE | 2017-02-07 13:37 | PDHOMEO2F ---
Home Oxygen Face to Face Home Orders: I certify that a physician or a nurse practitioner or physician's apartment community assistant manager has had a [id number] encounter with this patient on the date of this order due to the diagnosis listed, which relates to the primary reason the patient requires home oxygen. Alternative treatments have been tried, or considered, and deemed ineffective. It is anticipated that supplemental oxygen will result in improvement with treatment. Home oxygen qualifying diagnosis: metastatic melanoma Home oxygen secondary diagnosis: hypoxemia SpO2 on room air (%): 83 Frequency of home oxygen needed: continuous Home oxygen liters per minute: 3 Home oxygen delivery device: nasal cannula Concentrator: Yes E-tanks for mobility and back up: Yes If ordering portable O2, is the patient mobile in the home?: Yes I certify that, based on these findings, the home oxygen is medically necessary for this patient for the following length of time. Length of time home oxygen needed: 99 years
--- NOTE | 2017-02-07 13:39 | ASMTCMCOM ---
CM Note CM Note Notes: Hanna lyons here today to meet with patient and spouse. Following meeting Karen from [facility] said patient and spouse had decided to go with Hanna lyons. Contacted [facility] to confirm that they will be able to do start of care tomorrow , 02/08. Also, spoke with Itzel from [facility] who will be here to speak with family. Case management will follow. Date Signed: 02/07/2017 01:39 PM Electronically Signed By:DEMARCUS Larios
--- NOTE | 2017-02-07 15:40 | ASMTCMCOM ---
CM Note CM Note Notes: Spoke with patient and spouse to review services in place for discharge. Provided spouse, Goldie , with numbers for [facility] home care, [facility]. [facility] will call patient at home tonight to schedule time at home on Monday to see. [facility] will deliver infusion supplies tonight to their home, O2 will also be delivered . Both expressed appreciation to staff for care given. They are aware that Dr. Evans from [facility] will be coming to see patient at home. Date Signed: 02/07/2017 03:40 PM Electronically Signed By:DEMARCUS Larios
--- NOTE | 2017-02-07 16:39 | PDIAF ---
- Diagnosis Diagnosis: Malignant Melanoma Code Status: Do Not Resuscitate - Medication Management Discharge Medications: Medications to Continue on Transfer Aspirin EC [Aspirin EC 81 mg (*)] 81 mg PO DAILY 02/04/17 [Last Taken 02/04/17] Atorvastatin Calcium [Lipitor 40 mg (*)] 40 mg PO DAILY 02/04/17 [Last Taken ] Dexamethasone [Decadron 2 MG (*)] 2 - 4 mg PO DAILY 02/04/17 [Last Taken ] LORazepam [Ativan (*)] 0.5 - 1 mg PO Q6H PRN 02/04/17 [Last Taken Unknown] Mirtazapine [Remeron] 15 mg PO HS 02/04/17 [Last Taken 02/03/17] Ondansetron Odt [Zofran Odt 4 mg (*)] 8 mg PO BID 02/04/17 [Last Taken 02/04/17] morphINE IR [morphINE IR 15 mg (*)] 15 mg PO Q4H PRN 02/04/17 [Last Taken ] morphINE SR [Ms Contin/Oramorph 15 mg (*)] 15 mg PO BID 02/04/17 [Last Taken ] Ns [NS IV 1000ml (*)] 75 ml IV CONT #1 bag 02/07/17 [Last Taken Unknown] Discharge Medications: Refer to the Discharge Home Medication list for PRN reason. - Orders Services needed: Home Care, Registered Nurse, Physical Therapy, Occupational Therapy Home Care Face to Face: I certify that this patient was under my care and that I had the required [id number] encounter meeting the encounter requirements on the discharge day. My findings support the fact that the patient is homebound as defined in Home Care Face to Face Continued: CMS Chapter 7 Medicare Benefits Manual 30.1.1 , The condition of the patient is such that there exists a normal inability to leave home and consequently, leaving home would require a considerable and taxing effort. Diet Recommendation: no restrictions on diet Additional: IV Hydration NS 75 ml/hr 1L per day - Follow Up Care Current Providers and Referrals: Azam Echevarria MD [Primary Care Provider] - As per Instructions
--- NOTE | 2017-02-07 16:41 | PDIAF ---
- Diagnosis Diagnosis: Malignant Melanoma Code Status: Do Not Resuscitate - Medication Management Discharge Medications: Medications to Continue on Transfer Aspirin EC [Aspirin EC 81 mg (*)] 81 mg PO DAILY 02/04/17 [Last Taken 02/04/17] Atorvastatin Calcium [Lipitor 40 mg (*)] 40 mg PO DAILY 02/04/17 [Last Taken ] Dexamethasone [Decadron 2 MG (*)] 2 - 4 mg PO DAILY 02/04/17 [Last Taken ] LORazepam [Ativan (*)] 0.5 - 1 mg PO Q6H PRN 02/04/17 [Last Taken Unknown] Mirtazapine [Remeron] 15 mg PO HS 02/04/17 [Last Taken 02/03/17] Ondansetron Odt [Zofran Odt 4 mg (*)] 8 mg PO BID 02/04/17 [Last Taken 02/04/17] morphINE IR [morphINE IR 15 mg (*)] 15 mg PO Q4H PRN 02/04/17 [Last Taken ] morphINE SR [Ms Contin/Oramorph 15 mg (*)] 15 mg PO BID 02/04/17 [Last Taken ] Ns [NS IV 1000ml (*)] 1,000 ml IV DAILY #30 bag 02/07/17 [Last Taken Unknown] Discharge Medications: Refer to the Discharge Home Medication list for PRN reason. - Orders Services needed: Home Care, Registered Nurse, Physical Therapy, Occupational Therapy Home Care Face to Face: I certify that this patient was under my care and that I had the required [id number] encounter meeting the encounter requirements on the discharge day. My findings support the fact that the patient is homebound as defined in Home Care Face to Face Continued: CMS Chapter 7 Medicare Benefits Manual 30.1.1 , The condition of the patient is such that there exists a normal inability to leave home and consequently, leaving home would require a considerable and taxing effort. Diet Recommendation: no restrictions on diet Additional: IV Hydration NS 75 ml/hr 1L per day - Follow Up Care Current Providers and Referrals: Azam Echevarria MD [Primary Care Provider] - As per Instructions
--- NOTE | 2017-02-08 09:30 | ASDISCHSUM ---
Discharge Information Plan Status:Home with Home Health Medically Cleared to Leave: Discharge Date:02/07/2017 05:30 PM CM D/C Disposition:Home Health Service ADT D/C Disposition:Home Health Service Projected Discharge Date:02/07/2017 12:00 AM Transportation at D/C: Discharge Delay Reason: Follow-Up Date:02/07/2017 12:00 AM Discharge Slot: Final Diagnosis: Placement Information Referral Type:Home Infusion Referral ID:[id number] Provider Name:[facility] Address 1:[address] Address 2: City:[place] Selection Factors: State:[place] Patient Contact Information Contact Name:JUANITA Relationship: Address:[address] [place] [address] Work Phone: City:[facility] Phone: State/Zip Code:[place] [address] Email: Financial Information Financial Class: Primary Plan Desc:MEDICARE INPATIENT Primary Plan Number:[id number] Secondary Plan Desc:[employer] Secondary Plan Number:[id number] Assessment Information LACE LACE Acuity / Level of Care Answers: Was the patient admitted to hospital via the emergency department? Yes: Comorbidities - select Answers: Metastatic solid tumor all that apply Emergency dept visits in Answers: 1 last 6 months Score: 10 Date Signed: 02/04/2017 11:43 AM Electronically Signed By:Lizz Euceda RN [facility] CM Progress Note CM Note CM Note Notes: Met with patient today with spouse and daugter present. Patient and family decided that they would like to be able to go home but understand that they will need both Home care services with RN for help with infusion and with his ostomy. as will as PT and OT at home. Spoke with Itzel at [facility] who will get infusion supplies for hydration at home. Hanna Kwan to see patient and spouse on Monday, 02/07 between 9 and 10am. Patients spouse said she felt her would benefit in having some alone time talking with Palliative corporate travel expert Grant. Case management will follow. Date Signed: 02/06/2017 03:33 PM Electronically Signed By:DEMARCUS Larios [facility] CM Progress Note CM Note CM Note Notes: Hanna kwan here today to meet with patient and spouse. Following meeting Karen from [facility] said patient and spouse had decided to go with Hanna kwan. Contacted [facility] to confirm that they will be able to do start of care tomorrow 02/08. Also, spoke with Itzel from [facility] who will be here to speak with family. Case management will follow. Date Signed: 02/07/2017 01:39 PM Electronically Signed By:DEMACRUS Larios [facility] CM Progress Note CM Note CM Note Notes: Spoke with patient and spouse to review services in place for discharge. Provided spouse, Goldie , with numbers for [facility] home care, Hanna Mooney. [facility] will call patient at home tonight to schedule time at home on Monday to see. [facility] will deliver infusion supplies tonight to their home, O2 will also be delivered . Both expressed appreciation to staff for care given. They are aware that Dr. Evans from [facility] will be coming to see patient at home. Date Signed: 02/07/2017 03:40 PM Electronically Signed By:DEMARCUS Larios Intervention Information Intervention Type:*Incorrect Registration Date of Service:02/04/2017 01:50 PM Patient Type:Inpatient Staff Member:DOLORES Logan, Katie Hours:0.25 Discipline: Severity:1 (0-1 Hours) Comment:Registered observation, written admit order for inpatient status. Intervention Type:*IM-Signed Date of Service:02/07/2017 03:17 PM Patient Type:Inpatient Staff Member:Georgina Brody Hours: Discipline: Severity: Comment:
== END 2017-02-07 17:30 | disposition home health service (06) | DRG 641 ==
LOC: F1N 12:40 → OBSVTOIN 13:50
PROVIDERS: ADMIT Family Medicine; ATTEND Family Medicine
DX: E86.0 Dehydration (principal); C78.7 Secondary malignant neoplasm of liver and intrahepatic bile duct; C78.00 Secondary malignant neoplasm of unspecified lung; C30.0 Malignant neoplasm of nasal cavity; R62.7 Adult failure to thrive; E78.5 Hyperlipidemia, unspecified; G89.29 Other chronic pain
CPT/HCPCS: 97161-GP; G8978-GP-CI; G8979-GP-CI; G8980-GP-CI; J1650